=== PATIENT | male | born 2000 | race Caucasian/White ===

== ENCOUNTER 2023-06-18 17:51 | Emergency (ER) | payer OTHER, SELFPAY ==
--- NOTE | ~2023-06-18 | XR_ITS ---
EXAMINATION: XR HAND/WRIST, RIGHT CLINICAL INFORMATION: Crush injury of third digit. COMPARISON: None TECHNIQUE: PA, lateral, and oblique views of the right hand and wrist. Also, a PA view focused on the wrist during ulnar deviation of the hand is obtained (scaphoid view). FINDINGS: Bones have normal alignment throughout the hand and wrist. The joint spaces are maintained. No evidence of arthritic deformity, fracture or subluxation. No radiopaque foreign body, soft tissue gas or overt soft tissue swelling. XR/XR hand wrist RT IMPRESSION: No acute osseous injury in the hand or wrist.
[2023-06-18 17:56] VITALS: BP 139/78; PULSE 74; RESP 16; TEMP 36.7; O2SAT 100; BMI 32.0
--- NOTE | 2023-06-18 17:56 | ED_ITS ---
HPI - Extremity Injury (Upper) General Chief Complaint: Extremity Injury, Upper Stated Complaint: finger inj Time Seen by Provider: 06/18/23 19:02 Source: patient Mode of arrival: ambulatory Limitations: no limitations History of Present Illness HPI narrative: 23 yo male with no sig PMH R handed concrete slab fell on R middle finger now has bruising and swelling. He has sensation intact. No other injury noted. MD complaint: injury to: right and finger Onset (ago): hour(s) (prior to arrival ) Other Extremity Injury: right: fingers (middle) Other injuries: none Handedness: right Place: work Severity: moderate Relieving factors: none Exacerbating factors: movement of extremity Context: direct blow Associated symptoms: other (blood blister) Treatments prior to arrival: bandage Related Data Allergies Allergy/AdvReac Type Severity Reaction Status Date / Time No Known Allergies Allergy Verified 06/18/23 17:57 Review of Systems Review of Systems: Constitutional : No Fever, No Chills ENT/Mouth : No Ear Pain, No Hoarseness, No sore throat Eyes: No Eye Pain, No Swelling, No Redness, No Foreign Body Cardiovascular : No Chest Pain, No SOB Respiratory : No Cough, No Dyspnea Gastrointestinal : No Nausea, No Vomiting, No Diarrhea, No abdominal Pain Genitourinary : No Dysuria, No Hematuria Musculoskeletal : positive joint pain, No Myalgias, No Joint Swelling Skin : No Skin lacerations, No rash, pos blister Neuro : No Weakness, No Numbness, No Loss of Consciousness, No Dizziness All other systems reviewed and are negative [facility] Past Medical History Attestation statement: The following information was validated with the patient. Source: old records reviewed Medical History No pertinent past medical history Social History Social History (Updated 06/18/23 @ 19:17 by Kellie Carrasquillo DO) Patient Tobacco Use Status: Never used Tobacco Advance Directives: No Advance Directives Information Provided: No Physical Exam Vital Signs: Vital Signs: Last Vital Signs Temp 98.1 F 06/18/23 17:56 Pulse 74 06/18/23 17:56 Resp 16 06/18/23 17:56 BP 139/78 06/18/23 17:56 Pulse Ox 100 06/18/23 17:56 O2 Del Method Room Air 06/18/23 17:56 BMI result Body Mass Index 32.0 Appearance: Alert. Oriented X3. No acute distress. Eyes: Pupils equal, round and reactive to light. ENT: Pharynx normal. Neck: Normal inspection. Neck supple. CVS: Normal heart rate and rhythm. Pulses normal. Respiratory: No respiratory distress. Breath sounds normal. Abdomen: Soft and nontender. Skin: Skin warm and dry. Normal skin color. Normal skin turgor. Extremities: R middle finger no subungual hematoma fingerpad hemorrhagic blister noted NV intact Neuro: Oriented X 3. No motor deficit. No sensory deficit. Course Course Course Narrative: RME:?23 yo right hand dominant male here w/ right third digit pain after dropping a concrete slab on his hand at work prior to arrival. hematoma noted to right 3rd finger pad. no nailbed injury or subungal hematoma. 2+radial pulses. full ROM intact to R wrist. imaging ordered. Full HPI, ROS and PE to be performed by the primary ED provider. Medical Decision Making Medical Decision Making MDM Narrative: 23 yo male with no PMH R hand dominant here with crush injury to the R middle finger has contained non enlarging hemorrhagic blister to the pad of finger no subungual hematoma nailbed intact at this time xrays ordered, finger splint in place - possible tendon injury of extensor has a hard time fully extending the finger. Differential Diagnosis Differential Diagnoses: The differential diagnosis associated with the presentation includes crush injury, contusion, tendon injury Independent Interpretation I performed an independent interpretation of an: Plain X-Ray (no fracture) Radiology Impression Discussion of test interpretation with radiology: I have reviewed the radiologist's reading. Prescription Management I considered prescription management with: Pain Medication and Other Discharge Plan Discharge Clinical Impression: Crush injury Patient Disposition: Home, Self-Care Instructions: Blister (ED), Crush Injury (ED) Additional Instructions: return for increased swelling, pain, numbness or any other concerns. call and follow up with orthopedics. wear splint for the next 1 week concern for possible underlying tendon injury TECHNIQUE: PA, lateral, and oblique views of the right hand and wrist. Also, a PA view focused on the wrist during ulnar deviation of the hand is obtained (scaphoid view). FINDINGS: Bones have normal alignment throughout the hand and wrist. The joint spaces are maintained. No evidence of arthritic deformity, fracture or subluxation. No radiopaque foreign body, soft tissue gas or overt soft tissue swelling. XR/XR hand wrist RT IMPRESSION: No acute osseous injury in the hand or wrist. Referrals: Radha Flores PA-C [Physician Breaker Engineer] - (orthopedics department any provider) Stand Alone Forms: Work/School Release Print Language: Guamanian
[2023-06-18 20:15] VITALS: BP 141/86; PULSE 82; RESP 18; TEMP 36.6; O2SAT 98
== END 2023-06-18 20:16 | disposition home or self-care (01) ==
PROVIDERS: Emergency Provider Emergency Medicine
DX: S67.192A Crushing injury of right middle finger, initial encounter (principal); M25.531 Pain in right wrist; Y29.XXXA Contact with blunt object, undetermined intent, initial encounter; Y93.9 Activity, unspecified; Y92.9 Unspecified place or not applicable; Y99.0 Civilian activity done for income or pay
CPT/HCPCS: 29130; 73110; 73130; 99282; 99283

== ENCOUNTER 2023-06-26 14:13 | Outpatient (AMB) | payer OTHER, SELFPAY ==
--- NOTE | 2023-06-26 14:16 | A.OFFVIS_ITS ---
Intake Vital Signs 06/26/23 14:20 Height 5 ft 7 in Weight 204 lb BMI 31.9 Intake Visit Reasons: ov- rt 3rd digit crush inj Intake Note: Jairo tsang 23 year old right hand dominant male presents today for an ER follow up of right hand 3rd digit, DOI 06/12/23. Patient reports a concrete slab fell on his right middle finger, he presented to [facility] [place] [place] ED a few days later due to swelling. He states improvement since his injury however he has concerns of bruising at the tip of his finger. Denies numbness or tingling. Currently he has no pain, however at times he has a throbbing pain sensation. Allergies No Known Allergies Allergy (Verified 06/26/23 14:23) HPI ov- rt 3rd digit crush inj HPI Details 23-year-old right hand dominant male who presents to the office today for an ER follow-up of right 3rd metacarpal crush injury after a concrete slab fell on his right middle finger, 06/18/23. He was seen at ED a few days later due to swelling. He currently states he has improvement in his injury however he continues to have bruising at the tip of his finger. He denies any pain, numbness or tingling however he does experiences occasional throbbing pain in his finger. [facility] Medical History No pertinent past medical history Social History (Updated 06/26/23 @ 14:20 by ZOHAIB Ortiz) Patient Tobacco Use Status: Never used Tobacco Current occupational status: employed Current occupation: [employer], right hand dominant Review of Systems Const All systems reviewed & are unremarkable except as noted in HPI and below Physical Exam Vital Signs: BMI result Body Mass Index 31.9 Const General: cooperative and no acute distress Orientation/consciousness: patient oriented x3 Resp Effort & Inspection: normal respiratory effort and able to speak in complete sentences Cardio Peripheral pulses: Peripheral pulses 2+ throughout Neuro General: patient oriented x3 Extrem Other: Right middle finger: Normal to inspection. He does have a small blood blister at the tip of the middle finger. No extension lag noted. FDP and FDS are intact. NVI. Results Reviewed Results Reviewed: Xrays of the right hand obtained in the ED are negative for fracture Assessment & Plan Assessment & Plan (1) Crush injury: Code(s): T14.8XXA - Other injury of unspecified body region, initial encounter Plan There is no evidence of tendon rupture and no fracture on x-rays. He can increase activity as tolerated and see back if he has any concerns. Patient Instructions: Scribed for Radha Flores PA-C, by Norman Mcdaniel medical assistant prn, on 06/26/2023 at 2:15 PM EST. I, Radha Flores PA-C, have personally reviewed and agree with the information entered by the scribe. Coding Level of Care Code New Pt Level 3 (94519) Diagnoses Crush injury T14.8XXA
[2023-06-26 14:20] VITALS: BMI 31.9
== END 2023-06-26 20:41 | disposition home or self-care (01) ==
PROVIDERS: Visit Provider Physician Assistant
DX: S67.192A Crushing injury of right middle finger, initial encounter (principal); T14.8XXA Other injury of unspecified body region, initial encounter
CPT/HCPCS: 99203

== ENCOUNTER → 2023-06-26 14:13 | Outpatient (BNVA) | payer OTHER, SELFPAY | PROVIDERS: Visit Provider Physician Assistant | DX: S67.21XA Crushing injury of right hand, initial encounter (principal) | CPT/HCPCS: 99202 ==